=== PATIENT | male | born 1945 | race Caucasian/White ===

== ENCOUNTER 2023-04-05 15:16 | Emergency (ER) | payer MEDICARE ==
[~2023-04-05] VITALS: Ht 182.9 cm; Wt 94.8 kg
[2023-04-05] MEDS ORDERED: AMLODIPINE-OLM1 EAC2 PO (16:04)
[2023-04-05] MEDS ORDERED: ASPIRIN81 MG PO (16:05)
[2023-04-05] MEDS ORDERED: CLEOCIN HCL300 MG PO (17:55)
[2023-04-05] MEDS ORDERED: FAMCICLOVIR500 MG PO (17:55)
[2023-04-05] MEDS ORDERED: ACYCLOVIR5 GM TOP (17:55)
[2023-04-05 18:14] VITALS: BP 141/85
== END 2023-04-05 18:14 | disposition home or self-care (01) ==
LOC: ED 15:16
DX: B00.1 Herpesviral vesicular dermatitis (principal); I10 Essential (primary) hypertension; Z88.0 Allergy status to penicillin; Z79.82 Long term (current) use of aspirin
CPT/HCPCS: 99283